=== PATIENT | female | born 1930 | race Caucasian/White ===

== ENCOUNTER 2016-07-13 17:34 | Inpatient (IN) ==
[2016-07-13] MEDS ORDERED: Ondansetron 4 MG/2 ML VIAL IV ONE ×2 (17:37→19:18)
[2016-07-13] MEDS ORDERED: *HR* Morphine 2 MG/ML SYRINGE IV ONE (17:37)
[2016-07-13] MEDS ORDERED: 0.9 % Sodium Chloride 1,000 ML IVC ONE (17:37)
--- NOTE | 2016-07-13 17:39 | Emergency Department Note ---
Disposition Clinical Impression: Nausea, Diarrhea, Dehydration Disposition: Still a Patient Condition: Fair Referrals: NO,PCP [Non-Partnered Physician] - Forms: Work/School Release, ED Satisfaction Letter General Adult HPI - General Chief complaint: ED Abdominal Pain Stated complaint: Abdominal Pain Time Seen by Provider: 07/13/16 17:37 - Related Data Home Medications Medication Instructions Recorded Confirmed Levothyroxine [Synthroid] 25 mcg PO DAILY 02/12/15 05/16/16 Losartan [Cozaar] 25 mg PO DAILY 02/14/15 05/16/16 Escitalopram [Lexapro] 10 mg PO DAILY 02/19/15 05/16/16 Furosemide [Lasix] 40 mg PO DAILY 02/25/16 05/16/16 Lansoprazole [Prevacid] 30 mg PO DAILY 05/16/16 05/16/16 Megestrol Acetate [Megace] 40 mg PO DAILY 05/16/16 05/16/16 Ondansetron HCl [Zofran] 4 - 8 mg PO Q6-8H PRN 05/16/16 05/16/16 Primidone [Mysoline] 50 mg PO HS 05/16/16 05/16/16 Previous Rx's Medication Instructions Recorded Lactose-Reduced Food [Ensure High 1 bottle PO TID #90 can 02/27/16 Protein] Ciprofloxacin HCl [Cipro] 250 mg PO BID #16 tab 05/18/16 Ondansetron ODT [Zofran ODT] 4 mg SL Q6HR PRN #12 tab.rapdis 05/18/16 Megestrol Acetate [Megace] 10 ml PO BID #400 mls 07/07/16 MetroNIDAZOLE [Flagyl] 500 mg PO TID #30 tablet 07/07/16 Nitrofurantoin (BID) [Macrobid] 100 mg PO BID #20 capsule 07/07/16 Allergies Allergy/AdvReac Type Severity Reaction Status Date / Time No Known Allergies Allergy Verified 07/13/16 17:46 Past Medical History - Past Medical History Medical history: Reports: arthritis, cancer, diabetes, hyperlipidemia, hypertension, renal disease, thyroid disease, TIA Surgical history: Reports: cholecystectomy, colectomy, colostomy Psychiatric history: Reports: anxiety, depression 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 history: Reports: no BICYCLE REPAIRER history - Social History Smoking Status: Never smoker Smokeless Tobacco Status: No Alcohol use: Reports: none Drug use: Reports: none Course Vital Signs Temperature 97.6 F 07/13/16 17:36 Pulse Rate 88 07/13/16 17:36 Respiratory Rate 20 07/13/16 17:36 Blood Pressure 117/65 07/13/16 17:36 O2 Sat by Pulse Oximetry 99 07/13/16 17:36 Temperature 97.6 F 07/13/16 17:36 Pulse Rate 85 07/13/16 17:47 Respiratory Rate 20 07/13/16 17:47 Blood Pressure 117/65 07/13/16 17:36 O2 Sat by Pulse Oximetry 97 07/13/16 17:47 Oxygen Delivery Oxygen Delivery Room Air Medical Decision Making - Lab Data Result diagrams: 07/13/16 17:57 Lab Results 07/13/16 07/13/16 Range/Units 17:57 18:07 WBC 12.8 H (4.3-11.1) K/mcL RBC 4.83 (3.82-4.97) M/mcL Hgb 15.2 (11.5-15.4) g/dL Hct 43.8 (35.3-44.9) % MCV 90.7 (83.0-100.0) fL MCH 31.5 (28.0-33.3) pg MCHC 34.7 (31.6-35.5) g/dL RDW 13.8 (11.5-14.5) % Plt Count 288 (140-400) K/mcL MPV 9.8 (9.4-12.4) fL Immature Gran % 0.5 (0-4) % Seg Neutrophils % 72.3 % Lymphocytes % 21.5 % Monocytes % 5.3 % Eosinophils % 0.2 % Basophils % 0.2 % Neutrophils # 9.3 H (1.6-8.9) K/mcL Lymphocytes # 2.8 (0.6-4.6) K/mcL Monocytes # 0.7 (0.0-1.3) K/mcL Eosinophils # 0.0 (0.0-0.6) K/mcL Basophils # 0.0 (0.0-0.2) K/mcL Specimen Rejected Hemolyzed Attestation Statement - Attestation Attestation: I examined this patient and my medical decision-making was reviewed with the DIP GUIDER STOVES/PA/Advanced Practice Nurse/Resident Physician. I agree with the documented findings, disposition and treatment plan as described except to the extent set forth below. [id number] time provided Patient presents from home via EMS with reports of nausea, vomiting, loose stool into her ostomy appliance. She appears dehydrated on exam. She appears older than stated age. She is in the left side-lying position. 18:40: Care to be endorsed to the oncoming physician Dr. Willams at 7 PM pending labs and reevaluation. He will provide final disposition
--- NOTE | 2016-07-13 17:51 | Emergency Department Note ---
Disposition Clinical Impression: Nausea, Dehydration Diarrhea Qualifiers: Diarrhea type: unspecified type Qualified Code(s): R19.7 - Diarrhea, unspecified Disposition: Still a Patient Condition: Fair Referrals: NO,PCP [Non-Partnered Physician] - Forms: ED Satisfaction Letter, Work/School Release Time of Disposition: 18:45 Nausea/Vomiting/Diarrhea HPI - General Chief complaint: ED Abdominal Pain Stated complaint: Abdominal Pain Time Seen by Provider: 07/13/16 17:37 Source: EMS Mode of arrival: ambulatory Limitations: no limitations Nursing Notes Reviewed: Yes Vital Signs Reviewed: Yes - History of Present Illness HPI Narrative: Patient is an 85-year-old female with past medical history of hypertension, depression, bowel surgery with colostomy, diabetes, high cholesterol, TIA, CKD. She presents today via EMS due to nausea, significant diarrhea output from ostomy site, generalized weakness. EMS states that the patient has from home, lives with her . Blood pressure was 120/88, patient was tachycardic, afebrile. On presentation, patient denied any chest pain, shortness of breath, blood in stool, burning with urination, blood in urine. She did admit to some mild generalized abdominal pain. - Related Data Home Medications Medication Instructions Recorded Confirmed Levothyroxine [Synthroid] 25 mcg PO DAILY 02/12/15 05/16/16 Losartan [Cozaar] 25 mg PO DAILY 02/14/15 05/16/16 Escitalopram [Lexapro] 10 mg PO DAILY 02/19/15 05/16/16 Furosemide [Lasix] 40 mg PO DAILY 02/25/16 05/16/16 Lansoprazole [Prevacid] 30 mg PO DAILY 05/16/16 05/16/16 Megestrol Acetate [Megace] 40 mg PO DAILY 05/16/16 05/16/16 Ondansetron HCl [Zofran] 4 - 8 mg PO Q6-8H PRN 05/16/16 05/16/16 Primidone [Mysoline] 50 mg PO HS 05/16/16 05/16/16 Previous Rx's Medication Instructions Recorded Lactose-Reduced Food [Ensure High 1 bottle PO TID #90 can 02/27/16 Protein] Ciprofloxacin HCl [Cipro] 250 mg PO BID #16 tab 05/18/16 Ondansetron ODT [Zofran ODT] 4 mg SL Q6HR PRN #12 tab.rapdis 05/18/16 Megestrol Acetate [Megace] 10 ml PO BID #400 mls 07/07/16 MetroNIDAZOLE [Flagyl] 500 mg PO TID #30 tablet 07/07/16 Nitrofurantoin (BID) [Macrobid] 100 mg PO BID #20 capsule 07/07/16 Allergies Allergy/AdvReac Type Severity Reaction Status Date / Time No Known Allergies Allergy Verified 07/13/16 17:46 Constitutional: Denies: fever Cardiovascular: Denies: chest pain, palpitations, dyspnea on exertion Respiratory: Denies: cough, dyspnea, wheezes Gastrointestinal: Reports: abdominal pain, nausea, diarrhea. Denies: vomiting Genitourinary: Denies: urgency, dysuria, frequency, hematuria Musculoskeletal: Denies: back pain Integumentary: Denies: rash Neurological: Reports: weakness (Generalized). Denies: headache, numbness, paresthesias Past Medical History - Past Medical History Attestation: Yes The following information was validated with the patient. 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: Reports: no CIGAR PACKING EXAMINER history - Social History Smoking Status: Never smoker Smokeless Tobacco Status: No Alcohol use: Reports: none Drug use: Reports: none Physical Exam - General Limitations: no limitations General appearance: alert, cachectic - Head Head exam: atraumatic, normocephalic, normal inspection - Eye Eye exam: Present: EOMI, other (Right pupil chronically larger than left, reactive to light.) - ENT ENT exam: mucous membranes dry - Neck Neck exam: Present: normal inspection, full ROM, trachea midline - Chest Chest inspection: Present: normal inspection, symmetric chest wall rise - Respiratory Respiratory exam: Present: normal lung sounds bilaterally. Absent: respiratory distress, wheezes, stridor, accessory muscle use - Cardiovascular Cardiovascular exam: Present: regular rate, normal rhythm, normal heart sounds - Abdominal Exam Abdominal exam: Present: soft, tenderness (Mild generalized tenderness), other ( Colostomy bag is full of liquid stool, no local erythema, edema, or pus drainage around two ostomy sites. ). Absent: distention, guarding, rebound, rigidity - Extremities Exam Extremities exam: Present: normal inspection, full ROM. Absent: tenderness, pedal edema - Neurological Exam Neurological exam: Present: alert, oriented X3 - Psychiatric Psychiatric exam: Present: normal affect, normal mood - Skin Skin exam: Present: warm, dry, intact, normal color Course Course Narrative: Vitals were within normal limits on my exam. Physical exam shows: Cachectic female with dry mucous membranes, generalized abdominal pain, Colostomy bag is full of liquid stool, no local erythema, edema, or pus drainage around ostomy site. We will give the patient fluids 1 L normal saline, antibiotics, morphine for pain control. We will also obtain basic abdominal labs, urinalysis. Signed out to Dr. Martin and Dr. Willams for further care. Vital Signs Temperature 97.6 F 07/13/16 17:36 Pulse Rate 88 07/13/16 17:36 Respiratory Rate 20 07/13/16 17:36 Blood Pressure 117/65 07/13/16 17:36 O2 Sat by Pulse Oximetry 99 07/13/16 17:36 Temperature 97.6 F 07/13/16 17:36 Pulse Rate 85 07/13/16 17:47 Respiratory Rate 20 07/13/16 17:47 Blood Pressure 117/65 07/13/16 17:36 O2 Sat by Pulse Oximetry 97 07/13/16 17:47 Oxygen Delivery Oxygen Delivery Room Air Nausea/Vomiting/Diarrhea - [facility] Narrative Medical decision making narrative: Vitals were within normal limits on my exam. Physical exam shows: Cachectic female with dry mucous membranes, generalized abdominal pain, Colostomy bag is full of liquid stool, no local erythema, edema, or pus drainage around ostomy site. We will give the patient fluids 1 L normal saline, antibiotics, morphine for pain control. We will also obtain basic abdominal labs, urinalysis. Signed out to Dr. Martin and Dr. Willams for further care. - Medical Records Medical records reviewed: Yes I reviewed the patient's medical records. - Lab Data Lab results reviewed: Yes I reviewed the patient's lab results. Result diagrams: 07/13/16 17:57 Lab Results 07/13/16 07/13/16 Range/Units 17:57 18:07 WBC 12.8 H (4.3-11.1) K/mcL RBC 4.83 (3.82-4.97) M/mcL Hgb 15.2 (11.5-15.4) g/dL Hct 43.8 (35.3-44.9) % MCV 90.7 (83.0-100.0) fL MCH 31.5 (28.0-33.3) pg MCHC 34.7 (31.6-35.5) g/dL RDW 13.8 (11.5-14.5) % Plt Count 288 (140-400) K/mcL MPV 9.8 (9.4-12.4) fL Immature Gran % 0.5 (0-4) % Seg Neutrophils % 72.3 % Lymphocytes % 21.5 % Monocytes % 5.3 % Eosinophils % 0.2 % Basophils % 0.2 % Neutrophils # 9.3 H (1.6-8.9) K/mcL Lymphocytes # 2.8 (0.6-4.6) K/mcL Monocytes # 0.7 (0.0-1.3) K/mcL Eosinophils # 0.0 (0.0-0.6) K/mcL Basophils # 0.0 (0.0-0.2) K/mcL Specimen Rejected Hemolyzed - EKG Data EKG attestation: Yes I reviewed and interpreted this EKG. EKG results narrative: 07/13/16 at 18:02. Normal sinus rhythm. Rate 91. QTC 397. QRS 83. No acute ST elevation or depression. No acute changes from 05/16/16 S.B.A.R. - S.B.A.R. Situation: Demographics, MOA Background: Presenting Complaint, Relevant PMH, Meds, & Allergies Assessment: Vital Signs, Course and respsone to treatment, Exam Concerns, Patient/Family Expectation, Pertinant Lab Results, Outstanding Labs Recommendation: Barrier(s) to disposition, Recommendation based on pending studies, treatments, or consults S.B.A.R. Report Given to: Tabatha S.B.AMary AnneRMary Anne Repor Time: 18:45
[2016-07-13 18:04] LABS: Basophils % 0.2 %; Eosinophils % 0.2 %; Hematocrit 43.8 % (35.3-44.9); Hemoglobin 15.2 g/dL (11.5-15.4); Immature Granulocytes % 0.5 % (0-4); Lymphocytes # 2.8 K/mcL (0.6-4.6); Lymphocytes % 21.5 %; Mean Corpuscular HGB Conc 34.7 g/dL (31.6-35.5); Mean Corpuscular Hemoglobin 31.5 pg (28.0-33.3); Mean Corpuscular Volume 90.7 fL (83.0-100.0); Mean Platelet Volume 9.8 fL (9.4-12.4); Monocytes # 0.7 K/mcL (0.0-1.3); Monocytes % 5.3 %; Neutrophils # 9.3 K/mcL (1.6-8.9); Platelet Count 288 K/mcL (140-400); Red Blood Count 4.83 M/mcL (3.82-4.97); Red Cell Distribution Width 13.8 % (11.5-14.5); Segmented Neutrophils % 72.3 %
[2016-07-13 18:42] LABS: Bilirubin,Urine Negative (Negative); Blood,Urine Negative (Negative); Clarity,Urine Cloudy (Clear); Color,Urine Yellow (Yellow); Glucose,Urine (UA) Normal (Normal); Ketones,Urine Negative (Negative); Leukocyte Esterase,Urine Moderate (Negative); Nitrite,Urine Negative (Negative); Protein,Urine Negative (Neg-Trace); Specific Gravity,Urine 1.015 (1.010-1.025); Urobilinogen,Urine Normal (Normal)
[2016-07-13 18:44] LABS: Bacteria,Urine None Seen per hpf (None-Few); Hyaline Casts,Urine None Seen per lpf (None-Few); RBC,Urine 0-3 per hpf (0-3); Squamous Epithelial Cell,Urine Many per lpf (None-Few); WBC,Urine 15-30 per hpf (0-3)
[2016-07-13 18:52] LABS: Albumin 4.4 g/dL (3.5-5.0); Albumin/Globulin Ratio 1.3 (1.1-2.2); Bilirubin,Total 0.7 mg/dL (0.2-1.2); Calcium 10.1 mg/dL (8.6-10.8); Globulin 3.3 g/dL (2.4-3.5); Potassium 4.3 mEq/L (3.5-4.5); Total Protein 7.7 g/dL (6.0-8.3)
--- NOTE | 2016-07-13 20:22 | Emergency Department Note ---
Disposition Clinical Impression: Nausea, Dehydration, Hyponatremia Diarrhea Qualifiers: Diarrhea type: unspecified type Qualified Code(s): R19.7 - Diarrhea, unspecified Disposition: Admitted As Inpatient Condition: Fair Time of Disposition: 20:42 Abdominal Pain HPI - General Chief Complaint: ED Abdominal Pain Stated Complaint: Abdominal Pain Time Seen by Provider: 07/13/16 17:37 Source: EMS Mode of arrival: ambulatory Nursing Notes Reviewed: Yes Vital Signs Reviewed: Yes - History of Present Illness HPI Narrative: Patient presents emergency room by EMS for evaluation of dehydration feeling ill. Denies fevers chills chest pain shortness of breath headache or vision change. Main complaint on presentation his abdominal discomfort and generalized malaise. She has not wanted to eat or drink anything over the last several days to weeks she does have a history of colon cancer which she was treated with a diverting colectomy. Pt Subjective Complaint: abdominal pain Onset (ago): week(s) (2 weeks) Consistency: constant Pain Severity: none Pain Scale: 0 Quality: cramping, aching Radiation: none Migration to: no migration Improves with: nothing Worsens with: eating, movement Associated symptoms: Reports: chills - Related Data Home Medications Medication Instructions Recorded Confirmed Levothyroxine [Synthroid] 25 mcg PO DAILY 02/12/15 05/16/16 Losartan [Cozaar] 25 mg PO DAILY 02/14/15 05/16/16 Escitalopram [Lexapro] 10 mg PO DAILY 02/19/15 05/16/16 Furosemide [Lasix] 40 mg PO DAILY 02/25/16 05/16/16 Lansoprazole [Prevacid] 30 mg PO DAILY 05/16/16 05/16/16 Megestrol Acetate [Megace] 40 mg PO DAILY 05/16/16 05/16/16 Ondansetron HCl [Zofran] 4 - 8 mg PO Q6-8H PRN 05/16/16 05/16/16 Primidone [Mysoline] 50 mg PO HS 05/16/16 05/16/16 Previous Rx's Medication Instructions Recorded Lactose-Reduced Food [Ensure High 1 bottle PO TID #90 can 02/27/16 Protein] Ciprofloxacin HCl [Cipro] 250 mg PO BID #16 tab 05/18/16 Ondansetron ODT [Zofran ODT] 4 mg SL Q6HR PRN #12 tab.rapdis 05/18/16 Megestrol Acetate [Megace] 10 ml PO BID #400 mls 07/07/16 MetroNIDAZOLE [Flagyl] 500 mg PO TID #30 tablet 07/07/16 Nitrofurantoin (BID) [Macrobid] 100 mg PO BID #20 capsule 07/07/16 Allergies Allergy/AdvReac Type Severity Reaction Status Date / Time No Known Allergies Allergy Verified 07/13/16 17:46 All systems ED: reviewed and negative except as stated. Constitutional: Denies: fever Cardiovascular: Denies: chest pain, palpitations, dyspnea on exertion Respiratory: Denies: cough, dyspnea, wheezes Gastrointestinal: Reports: abdominal pain, nausea, diarrhea. Denies: vomiting Genitourinary: Denies: urgency, dysuria, frequency, hematuria Musculoskeletal: Denies: back pain Integumentary: Denies: rash Neurological: Reports: weakness (Generalized). Denies: headache, numbness, paresthesias Abdominal Pain PMH - Past Medical History Medical history: Reports: arthritis, cancer, diabetes, hyperlipidemia, hypertension, renal disease, thyroid disease, TIA Female Surgical History: Reports: colostomy HISTOLOGY TECHNOLOGIST history: Reports: no HISTOLOGY TECHNOLOGIST history Psychiatric history: Reports: anxiety, depression - Social History Smoking status: Never smoker Alcohol use: Reports: none Drug use: Reports: none Physical Exam - General Limitations: no limitations General appearance: alert, cachectic - Chest Chest inspection: Present: normal inspection, symmetric chest wall rise - Respiratory Respiratory exam: Present: normal lung sounds bilaterally. Absent: respiratory distress, wheezes - Cardiovascular Cardiovascular exam: Present: regular rate, normal rhythm, normal heart sounds - Abdominal Exam Abdominal exam: Present: soft, Non-Tender, normal bowel sounds, other (Patient has a well-healed ostomy site. No signs of discharge redness or swelling no palpable abscess formation. She has a healing either ostomy site of previous G- tube placement.). Absent: tenderness, distention, guarding, rebound, rigidity, Miller's sign, Rovsing's sign, tenderness at McBurney's Point Course Course Narrative: Patient seen and examined the time of arrival. Patient was signed out at the start of my shift. 85-year-old female presenting with failure to thrive weakness and dehydration. Patient is accompanied here to home. is not the bedside currently. He is on his way in. Otherwise vital signs been reviewed and are stable. Patient is very cachectic and frail on my evaluation. Lungs are clear heart is regular. Abdomen is soft she does have previously healing either ostomy G-tube site. No abscess formation. Skin is not showing any signs of cellulitis or infection. Ostomy site appears to be appropriate. Good output legs and extremities are very thin frail patient has weakness at home. Vital signs reviewed and are stable. Lab workup to be completed. Imaging Ativan at this time to evaluate for lung related issue. Fluids and nausea medication to continue. Discussion will be had with the when he gets here for possible placement medical management - Reevaluation(s) Reevaluation #1: Patient is influenza negative. She does have an elevated creatinine showing signs of dehydration along with a gapped acidosis. She has hypochloremic hyponatremic metabolic acidosis. Patient will be advised to consider admission at this time. will be informed of our plan. Hospital this time for admission for hyponatremia hypochloremic metabolic acidosis with dehydration Time: 20:41 Reevaluation #2: Patient was discussed with the hospitalist Dr. soto. We reviewed the patient's presentation symptoms medical history in great detail. All recommendations he had a treatment course was that on blood cultures and divided provide the patient with a one-time dose of Rocephin here in the emergency room to treat his concern for a possible urinary tract infection. Patient is stable informed of our plan. Admission process to be completed this time. We will continue to monitor her symptoms and medical care in the emergency room and so she was transferred up to the floor. Time: 21:03 Vital Signs Temperature 97.6 F 07/13/16 17:36 Pulse Rate 88 07/13/16 17:36 Respiratory Rate 20 07/13/16 17:36 Blood Pressure 117/65 07/13/16 17:36 O2 Sat by Pulse Oximetry 99 07/13/16 17:36 Temperature 98.1 F 07/13/16 23:05 Pulse Rate 78 07/13/16 23:05 Respiratory Rate 18 07/13/16 23:05 Blood Pressure 128/64 07/13/16 23:05 O2 Sat by Pulse Oximetry 97 07/13/16 23:05 Oxygen Delivery Oxygen Delivery Room Air Abdominal Pain - MDM Narrative Medical decision making narrative: Dehydration, failure to thrive, decompensation, muscle wasting - Medical Records Medical records reviewed: Yes I reviewed the patient's medical records. - Lab Data Lab results reviewed: Yes I reviewed the patient's lab results. Result diagrams: 07/13/16 17:57 07/13/16 18:26 Lab Results 07/13/16 07/13/16 07/13/16 Range/Units 17:57 18:07 18:26 WBC 12.8 H (4.3-11.1) K/mcL RBC 4.83 (3.82-4.97) M/mcL Hgb 15.2 (11.5-15.4) g/dL Hct 43.8 (35.3-44.9) % MCV 90.7 (83.0-100.0) fL MCH 31.5 (28.0-33.3) pg MCHC 34.7 (31.6-35.5) g/dL RDW 13.8 (11.5-14.5) % Plt Count 288 (140-400) K/mcL MPV 9.8 (9.4-12.4) fL Immature Gran % 0.5 (0-4) % Seg Neutrophils % 72.3 % Lymphocytes % 21.5 % Monocytes % 5.3 % Eosinophils % 0.2 % Basophils % 0.2 % Neutrophils # 9.3 H (1.6-8.9) K/mcL Lymphocytes # 2.8 (0.6-4.6) K/mcL Monocytes # 0.7 (0.0-1.3) K/mcL Eosinophils # 0.0 (0.0-0.6) K/mcL Basophils # 0.0 (0.0-0.2) K/mcL Sodium 121 L (136-145) mEq/L Potassium 4.3 (3.5-4.5) mEq/L Chloride 84 L (98-109) mEq/L Carbon Dioxide 19 (19-29) mEq/L BUN 90 H (7-20) mg/dL Creatinine 2.02 H (0.57-1.11) mg/dL Est GFR ( Amer) 28 L (> 60) Est GFR (Non-Af Amer) 23 L (> 60) BUN/Creatinine Ratio 45 H (6-26) Glucose 104 H (70-99) mg/dL Calculated Osmolality 280 (280-300) Lactic Acid (0.5-2.2) mmol/L Calcium 10.1 (8.6-10.8) mg/dL Total Bilirubin 0.7 (0.2-1.2) mg/dL AST 27 (5-34) Units/L ALT 14 (0-55) Units/L Alkaline Phosphatase 75 (38-126) Units/L Serum Total Protein 7.7 (6.0-8.3) g/dL Albumin 4.4 (3.5-5.0) g/dL Globulin 3.3 (2.4-3.5) g/dL Albumin/Globulin Ratio 1.3 (1.1-2.2) Lipase 152 H (8-78) Units/L Urine Color (Yellow) Urine Clarity (Clear) Urine pH (5.0-8.0) pH Units Ur Specific [place] (1.010-1.025) Urine Protein (Neg-Trace) mg/dL Urine Glucose (UA) (Normal) mg/dL Urine Ketones (Negative) mg/dL Urine Blood (Negative) Urine Nitrite (Negative) Urine Bilirubin (Negative) Urine Urobilinogen (Normal) mg/dL Ur Leukocyte Esterase (Negative) Urine Microscopic RBC (0-3) per hpf Urine Microscopic WBC (0-3) per hpf Ur Squamous Epith Cells (None-Few) per lpf Urine Bacteria (None-Few) per hpf Hyaline Casts (None-Few) per lpf Specimen Rejected Hemolyzed 07/13/16 07/13/16 Range/Units 18:26 18:33 WBC (4.3-11.1) K/mcL RBC (3.82-4.97) M/mcL Hgb (11.5-15.4) g/dL Hct (35.3-44.9) % MCV (83.0-100.0) fL MCH (28.0-33.3) pg MCHC (31.6-35.5) g/dL RDW (11.5-14.5) % Plt Count (140-400) K/mcL MPV (9.4-12.4) fL Immature Gran % (0-4) % Seg Neutrophils % % Lymphocytes % % Monocytes % % Eosinophils % % Basophils % % Neutrophils # (1.6-8.9) K/mcL Lymphocytes # (0.6-4.6) K/mcL Monocytes # (0.0-1.3) K/mcL Eosinophils # (0.0-0.6) K/mcL Basophils # (0.0-0.2) K/mcL Sodium (136-145) mEq/L Potassium (3.5-4.5) mEq/L Chloride (98-109) mEq/L Carbon Dioxide (19-29) mEq/L BUN (7-20) mg/dL Creatinine (0.57-1.11) mg/dL Est GFR ( Amer) (> 60) Est GFR (Non-Af Amer) (> 60) BUN/Creatinine Ratio (6-26) Glucose (70-99) mg/dL Calculated Osmolality (280-300) Lactic Acid 1.7 (0.5-2.2) mmol/L Calcium (8.6-10.8) mg/dL Total Bilirubin (0.2-1.2) mg/dL AST (5-34) Units/L ALT (0-55) Units/L Alkaline Phosphatase (38-126) Units/L Serum Total Protein (6.0-8.3) g/dL Albumin (3.5-5.0) g/dL Globulin (2.4-3.5) g/dL Albumin/Globulin Ratio (1.1-2.2) Lipase (8-78) Units/L Urine Color Yellow (Yellow) Urine Clarity Cloudy A (Clear) Urine pH 5.0 (5.0-8.0) pH Units Ur Specific [place] 1.015 (1.010-1.025) Urine Protein Negative (Neg-Trace) mg/dL Urine Glucose (UA) Normal (Normal) mg/dL Urine Ketones Negative (Negative) mg/dL Urine Blood Negative (Negative) Urine Nitrite Negative (Negative) Urine Bilirubin Negative (Negative) Urine Urobilinogen Normal (Normal) mg/dL Ur Leukocyte Esterase Moderate H (Negative) Urine Microscopic RBC 0-3 (0-3) per hpf Urine Microscopic WBC 15-30 H (0-3) per hpf Ur Squamous Epith Cells Many H (None-Few) per lpf Urine Bacteria None Seen (None-Few) per hpf Hyaline Casts None Seen (None-Few) per lpf Specimen Rejected - Radiology Data Radiology results reviewed: Yes I reviewed the patient's radiology results. Chest x-ray shows no acute pathology on exam. Attestation Statement - Attestation Attestation: For this encounter, I have reviewed the resident, WOODWORK SALVAGE INSPECTOR, or PA documentation, treatment plan, and medical decision making; and I have had face to face time with this patient. 85-year-old female presents to the emergency department with concerns of nausea , vomiting, diarrhea and associated weakness, fatigue. Patient is unable to provide an adequate history regarding her symptoms. This patient was received in sign out at the start of my shift, pending labs and disposition. On reevaluation the patient is fatigued and weak, unable to give a history. She has an anion gap of 18 with hyponatremia and hypochloremia. Patient has mild elevation of her creatinine compared to previous. The patient was admitted to the hospitalist for further care and evaluation. Hospitaist recommended starting antibiotics for possible urinary tract infection.
[2016-07-13] MEDS ORDERED: Levofloxacin 750 MG/150 ML 750 MG/150 ML BAG IVPB SCH (23:45)
--- NOTE | 2016-07-13 23:48 | Internal Med History&Physical ---
Date of Encounter: 07/13/16 Time of Encounter: 23:44 Assessment and Plan (1) Hyponatremia Current visit: Yes Status: Acute Hypovolemic hyponatremia. Sodium 121. patient had received 1 L of normal saline in the ER. Will recheck sodium Q4 hours I will hold off fluid resuscitation until repeat sodium check is done now. Plan to correct the sodium no faster than .5 mEq per hour or 10 mEq per day (2) Acute renal failure Current visit: No Status: Acute Hydration. Monitor urine output. jimenez catheter will be placed Qualifiers: Qualified Code(s): N17.9 - Acute kidney failure, unspecified (3) DVT prophylaxis Current visit: No Status: Acute Heparin subcutaneous (4) UTI (urinary tract infection) Current visit: No Status: Acute Ceftriaxone 1 g daily she had most infections before with gram-negative organisms susceptible to ceftriaxone. One time she had enterococcus however patient described hemodynamically stable. If She becomes unstable broaden coverage to cultures are back Qualifiers: Qualified Code(s): N39.0 - Urinary tract infection, site not specified (5) Nausea Current visit: Yes Status: Acute Abdominal exam is benign. May be related to unit tract infection. Symptomatic treatment. Ice chips for now her lipase is 150. Does not Meet criteria for acute pancreatitis. Internal Medicine - H&P: HPI Chief complaint: weakness History of present illness: Ms. Guerrero is a 85 year old female with multiple medical problems presents an emergency room today with weakness. For the past day or so she has been noticing nausea is not been eating or drinking well. She has been getting progressively weak. Woke up in the emergency room showed evidence of dehydration renal failure and during tract infection. Patient has multiple urinary tract infections before. Patient denies any cough expectoration fevers or chills. Patient denies any increase output from colostomy. Patient denies any abdominal pain or chest pain Past Med Surg Social Fam HX - Past Medical History Medical history: arthritis, cancer, diabetes, hyperlipidemia, hypertension, renal disease, thyroid disease, TIA Psychiatric history: anxiety, depression - Past Surgical History Surgical History: cholecystectomy, colectomy, colostomy - Social History Smoking Status: Never smoker Smokeless Tobacco Status: No Alcohol use: none Drug use: none - Family History Mother Adopted: No Hx Family Cardiac Disorders: Yes Hx Family Respiratory Disorders: No Father Hx Family Respiratory Disorders: Yes (TB) Internal Medicine - H&P: Meds Levothyroxine [Synthroid] 25 mcg PO DAILY 02/12/15 [History] Losartan [Cozaar] 25 mg PO DAILY 02/14/15 [History] Escitalopram [Lexapro] 10 mg PO DAILY 02/19/15 [History] Furosemide [Lasix] 40 mg PO DAILY 02/25/16 [History] Lactose-Reduced Food [Ensure High Protein] 1 bottle PO TID #90 can 02/27/16 [Rx] Lansoprazole [Prevacid] 30 mg PO DAILY 05/16/16 [History] Megestrol Acetate [Megace] 40 mg PO DAILY 05/16/16 [History] Ondansetron HCl [Zofran] 4 - 8 mg PO Q6-8H PRN 05/16/16 [History] Primidone [Mysoline] 50 mg PO HS 05/16/16 [History] Ciprofloxacin HCl [Cipro] 250 mg PO BID #16 tab 05/18/16 [Rx] Ondansetron ODT [Zofran ODT] 4 mg SL Q6HR PRN #12 tab.rapdis 05/18/16 [Rx] Megestrol Acetate [Megace] 10 ml PO BID #400 mls 07/07/16 [Rx] MetroNIDAZOLE [Flagyl] 500 mg PO TID #30 tablet 07/07/16 [Rx] Nitrofurantoin (BID) [Macrobid] 100 mg PO BID #20 capsule 07/07/16 [Rx] Allergies No Known Allergies Allergy (Verified 07/13/16 17:46) All Systems PM: A 10-system review of systems was performed and is negative for pertinent findings except as documented above in the HPI. Review of systems: 10 point review of systems is negative except for HPI - Constitutional Vitals: Temp Pulse Resp BP Pulse Ox 98.1 F 78 18 128/64 97 07/13/16 23:05 07/13/16 23:05 07/13/16 23:05 07/13/16 23:05 07/13/16 23:05 Exam: Gen.: patient is alert oriented not in distress. Cardiac: Normal S1 S2 no additional sounds or murmurs chest: clear to auscultation abdomen soft nontender nondistended normal bowel sounds. Colostomy bag in place lower extremity: lax calf muscles neuro no focal deficit Internal Med - H&P Results - Labs CBC & Chem 7: 07/13/16 17:57 07/13/16 18:26
[2016-07-14 04:51] LABS: Basophils % 0.2 %; Eosinophils # 0.1 K/mcL (0.0-0.6); Eosinophils % 0.7 %; Hematocrit 39.3 % (35.3-44.9); Immature Granulocytes % 0.7 % (0-4); Lymphocytes % 22.1 %; Mean Corpuscular HGB Conc 33.8 g/dL (31.6-35.5); Mean Corpuscular Hemoglobin 31.1 pg (28.0-33.3); Mean Corpuscular Volume 91.8 fL (83.0-100.0); Mean Platelet Volume 9.7 fL (9.4-12.4); Monocytes # 0.8 K/mcL (0.0-1.3); Monocytes % 5.9 %; Neutrophils # 9.4 K/mcL (1.6-8.9); Platelet Count 242 K/mcL (140-400); Red Blood Count 4.28 M/mcL (3.82-4.97); Red Cell Distribution Width 13.9 % (11.5-14.5); Segmented Neutrophils % 70.4 %
[2016-07-14 04:57] LABS: Hemoglobin 13.3 g/dL (11.5-15.4)
[2016-07-14 05:03] LABS: Calcium 8.6 mg/dL (8.6-10.8); Magnesium 2.4 mg/dL (1.6-2.6); Potassium 3.6 mEq/L (3.5-4.5)
[2016-07-14] MEDS: *HR* Heparin 5,000 UNIT/ML VIAL SQ SCH ×2 (06:21→18:28)
[2016-07-14] MEDS: Levothyroxine 25 MCG TABLET PO SCH (06:22)
[2016-07-14] MEDS: 0.9 % Sodium Chloride 1,000 ML IVC SCH (10:30)
--- NOTE | 2016-07-14 11:13 | Internal Med Progress Note ---
Date of Encounter: 07/14/16 Time of Encounter: 11:12 - Assessment and plan (1) UTI (urinary tract infection) Current Visit: No Status: Acute Assessment and plan: UA suspicious for UTI F/U urine culture Qualifiers: Urinary tract infection type: acute cystitis Hematuria presence: with hematuria Qualified Code(s): N30.01 - Acute cystitis with hematuria (2) Pneumonia Current Visit: Yes Status: Acute Assessment and plan: Due to imaging findings and generalized labile status will empirically treat for PNA at this time follow up Legionella Ag f/u blood cultures Started Levaquin IV Qualifiers: Pneumonia type: due to unspecified organism Laterality: unspecified laterality Lung location: unspecified part of lung Qualified Code(s): J18.9 - Pneumonia, unspecified organism (3) Hyponatremia Current Visit: Yes Status: Acute Assessment and plan: Hypovolemic hyponatremia Continue IV fluids Plan to correct Na no faster than 0.5meq/hour to 10 meq/day (4) Acute renal insufficiency Current Visit: No Status: Acute Assessment and plan: likely secondary to dehydration Kidney function improved from previous day continue iv fluids continue to monitor (5) Colon cancer Current Visit: No Status: Chronic Assessment and plan: hx of colon ca in remission s/p colostomy Qualifiers: Colon location: transverse Qualified Code(s): C18.4 - Malignant neoplasm of transverse colon (6) DVT prophylaxis Current Visit: No Status: Acute Assessment and plan: Heparin SQ - Subjective Interval history: Patient seen and examined with present at bedside. Patient reports of feeling sick but denies any chest pain, sob, abd pain, n/v, fever, or chills. As per records, patient noted to have multiple UTIs and recently had a CT abd/ pelvis which was negative for metastatic disease but showed pulmonary nodules consistent with infectious etiology. - Constitutional Vitals: Temp Pulse Resp BP Pulse Ox 97.9 F 71 16 107/67 97 07/14/16 07:51 07/14/16 07:51 07/14/16 07:51 07/14/16 07:51 07/14/16 07:51 General appearance: Present: A&O X 3 (frail ), no acute distress - Head Head exam: Present: atraumatic, normocephalic - Eye Eye exam: Present: normal appearance. Absent: conjuntiva pink, sclera anicteric - Respiratory Respiratory exam: Present: CTAB. Absent: respiratory distress, wheezes - Cardiovascular Cardiovascular exam: Present: RRR, +S1, +S2 - GI/Abdominal GI/Abdominal exam: Present: normal bowel sounds, soft. Absent: tenderness ( colostomy bag with feces) - Extremities Exam Extremities exam: Present: warm, radial pulses palpable and symetrical. Absent : calf tenderness, pedal edema Internal Medicine: Result - Labs CBC & Chem 7: 07/14/16 04:25 07/14/16 11:40 Labs: Short CBC 07/14/16 Range/Units 04:25 WBC 13.4 H (4.3-11.1) K/mcL Hgb 13.3 D (11.5-15.4) g/dL Hct 39.3 (35.3-44.9) % Plt Count 242 (140-400) K/mcL Neutrophils # 9.4 H (1.6-8.9) K/mcL BMP 07/14/16 07/14/16 07/14/16 00:09 04:25 04:25 Sodium 125 L 127 L 127 L Potassium 3.6 Chloride 95 L Carbon Dioxide 20 BUN 84 H Creatinine 1.37 H Glucose 84 Calcium 8.6 07/14/16 08:14 Sodium 128 L Potassium Chloride Carbon Dioxide BUN Creatinine Glucose Calcium - VTE Documentation of Mechanical Device: Intermittent pneumatic compression device Consult Discharge Plan - Plan Referrals: Yinka Jama MD [Primary Care Provider] -
[2016-07-14] MEDS ORDERED: Levofloxacin 750 MG/150 ML 750 MG/150 ML BAG IVPB SCH (12:00)
[2016-07-14] MEDS: Ondansetron 4 MG/2 ML VIAL IVP PRN (12:28)
--- NOTE | 2016-07-14 19:42 | Electrocardiograph Report ---
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
[2016-07-14] MEDS: Haloperidol Lactate 5 MG/ML VIAL IVP PRN (23:22)
[2016-07-15] MEDS: 0.9 % Sodium Chloride 1,000 ML IVC SCH (01:33)
[2016-07-15 04:41] LABS: Basophils % 0.3 %; Eosinophils # 0.1 K/mcL (0.0-0.6); Eosinophils % 0.8 %; Hematocrit 35.5 % (35.3-44.9); Hemoglobin 12.2 g/dL (11.5-15.4); Immature Granulocytes % 0.5 % (0-4); Lymphocytes # 2.4 K/mcL (0.6-4.6); Mean Corpuscular HGB Conc 34.4 g/dL (31.6-35.5); Mean Corpuscular Hemoglobin 31.3 pg (28.0-33.3); Mean Platelet Volume 9.4 fL (9.4-12.4); Monocytes # 0.9 K/mcL (0.0-1.3); Monocytes % 8.1 %; Neutrophils # 7.6 K/mcL (1.6-8.9); Platelet Count 197 K/mcL (140-400); Red Cell Distribution Width 13.8 % (11.5-14.5); Segmented Neutrophils % 68.3 %
[2016-07-15 05:15] LABS: BUN/Creatinine Ratio 42 (6-26); Calcium 8.6 mg/dL (8.6-10.8); Carbon Dioxide 20 mEq/L (19-29); Chloride 96 mEq/L (98-109); Glucose 91 mg/dL (70-99); Magnesium 1.9 mg/dL (1.6-2.6); Osmolality,Calculated 268 (280-300); Phosphorous 1.8 mg/dL (2.3-4.7); Potassium 3.7 mEq/L (3.5-4.5); Sodium 126 mEq/L (136-145); eGFR For African Americans > 60 (> 60); eGFR For Non-African Americans > 60 (> 60)
[2016-07-15 05:21] LABS: Blood Urea Nitrogen 32 mg/dL (7-20)
[2016-07-15] MEDS: Levothyroxine 25 MCG TABLET PO SCH (07:02)
[2016-07-15] MEDS: *HR* Heparin 5,000 UNIT/ML VIAL SQ SCH ×2 (07:05→18:48)
--- NOTE | 2016-07-15 08:03 | Internal Med Progress Note ---
Date of Encounter: 07/15/16 Time of Encounter: 08:00 - Assessment and plan (1) Confusion Current Visit: Yes Status: Chronic Assessment and plan: Patient has had previous admissions with similar complaints; case d/w patient services rep and patient and her unable to care for themselves at home; patient does have significant cognitive dysfunction and dementia, and likely at her baseline currently; mentation made worse by underlying infection, hyponatremia, dehydration and hospitalization; continue to monitor; fall precautions; plan for placement in SNF when medically stable; (2) Hyponatremia Current Visit: Yes Status: Acute Assessment and plan: likely related to dehydration and poor oral intake; stable around 126; repeat serum sodium every 8hours and monitor closely; continue IV hydration with NS; (3) Nausea Current Visit: Yes Status: Acute Assessment and plan: Although patient reports feeling sick, no actual evidence of nausea or emesis per RN discussions and notes; continue to monitor; (4) Pneumonia Current Visit: Yes Status: Acute Assessment and plan: CXR not suggestive of Pneumonia; continue IV Levaquin to complete 7-day course ( 07/08 today). Blood cultures remain negative; O2 requirements at baseline; Qualifiers: Pneumonia type: due to unspecified organism Laterality: unspecified laterality Lung location: unspecified part of lung Qualified Code(s): J18.9 - Pneumonia, unspecified organism (5) Acute renal failure Current Visit: Yes Status: Resolved Assessment and plan: improved with IV hydration; Qualifiers: Acute renal failure type: unspecified Qualified Code(s): N17.9 - Acute kidney failure, unspecified (6) UTI (urinary tract infection) Current Visit: Yes Status: Acute Assessment and plan: f/up urine culture and continue IV Levaquin; Qualifiers: Urinary tract infection type: site unspecified Hematuria presence: without hematuria Qualified Code(s): N39.0 - Urinary tract infection, site not specified (7) Colon cancer Current Visit: Yes Status: Chronic Qualifiers: Colon location: transverse Qualified Code(s): C18.4 - Malignant neoplasm of transverse colon (8) Diabetes Current Visit: Yes Status: Chronic Assessment and plan: Accucheck blood glucose monitoring with sliding scale insulin as needed; patient noted to have chronic poor appetite; advance to soft diabetic diet; Qualifiers: Diabetes mellitus type: type 2 Diabetes mellitus complication status: with unspecified complications Diabetes mellitus intermediate insulin use: without superintendent container terminal use Qualified Code(s): E11.8 - Type 2 diabetes mellitus with unspecified complications (9) Hyperlipidemia Current Visit: Yes Status: Chronic Qualifiers: Hyperlipidemia type: unspecified Qualified Code(s): E78.5 - Hyperlipidemia , unspecified (10) Hypertension Current Visit: Yes Status: Chronic Qualifiers: Hypertension type: essential hypertension Qualified Code(s): I10 - Essential (primary) hypertension (11) Hypothyroidism Current Visit: Yes Status: Chronic Qualifiers: Hypothyroidism type: unspecified Qualified Code(s): E03.9 - Hypothyroidism , unspecified - Subjective Interval history: Confused. Keeps repeating that she wants to get out of bed and needs to urinate , and that she is sick; no reported vomiting or diarrhea. No abdominal pain. Noted to have received a dose of Haldol overnight for agitation. - Constitutional Vitals: Temp Pulse Resp BP Pulse Ox 97.9 F 81 18 121/68 96 07/15/16 04:06 07/15/16 04:06 07/15/16 04:06 07/15/16 04:06 07/15/16 04:06 General appearance: Present: A&O X 1 - Respiratory Respiratory exam: Present: CTAB. Absent: accessory muscle use, rales, rhonchi, wheezes - Cardiovascular Cardiovascular exam: Present: RRR, +S1, +S2. Absent: diastolic murmur, gallop, rubs, systolic murmur - GI/Abdominal GI/Abdominal exam: Present: normal bowel sounds, soft, no peritoneal signs. Absent: distended, tenderness Internal Medicine: Result - Labs CBC & Chem 7: 07/15/16 04:30 07/15/16 12:20 Labs: Short CBC 07/15/16 Range/Units 04:30 WBC 11.1 (4.3-11.1) K/mcL Hgb 12.2 (11.5-15.4) g/dL Hct 35.5 (35.3-44.9) % Plt Count 197 (140-400) K/mcL Neutrophils # 7.6 (1.6-8.9) K/mcL BMP 07/14/16 07/14/16 07/15/16 08:14 11:40 04:30 Sodium 128 L 129 L 126 L Potassium 3.7 Chloride 96 L Carbon Dioxide 20 BUN 32 H D Creatinine 0.77 Glucose 91 Calcium 8.6 - VTE Documentation of Mechanical Device: Intermittent pneumatic compression device Consult Discharge Plan - Plan Referrals: Yinka Jama MD [Primary Care Provider] -
[2016-07-15] MEDS ORDERED: Sodium Phosphate 30 MMOL in D5% in Water 100 ML IVPB ONE (08:47)
[2016-07-15] MEDS: Haloperidol Lactate 5 MG/ML VIAL IVP PRN ×2 (12:55→22:20)
[2016-07-15] MEDS: Ondansetron 4 MG/2 ML VIAL IVP PRN (20:13)
[2016-07-16] MEDS ORDERED: Acetaminophen 325 MG TABLET PO PRN (01:44)
[2016-07-16] MEDS: 0.9 % Sodium Chloride 1,000 ML IVC SCH (05:24)
[2016-07-16] MEDS: Levothyroxine 25 MCG TABLET PO SCH (05:24)
[2016-07-16 06:16] LABS: BUN/Creatinine Ratio 21 (6-26); Calcium 8.4 mg/dL (8.6-10.8); Carbon Dioxide 21 mEq/L (19-29); Chloride 104 mEq/L (98-109); Glucose 79 mg/dL (70-99); Osmolality,Calculated 277 (280-300); Phosphorous 2.7 mg/dL (2.3-4.7); Potassium 3.2 mEq/L (3.5-4.5); Sodium 134 mEq/L (136-145); eGFR For African Americans > 60 (> 60); eGFR For Non-African Americans > 60 (> 60)
[2016-07-16 06:21] LABS: Blood Urea Nitrogen 14 mg/dL (7-20)
[2016-07-16] MEDS: *HR* Heparin 5,000 UNIT/ML VIAL SQ SCH ×2 (06:31→17:58)
[2016-07-16] MEDS: Ondansetron 4 MG/2 ML VIAL IVP PRN ×2 (08:30→16:21)
--- NOTE | 2016-07-16 09:01 | Internal Med Progress Note ---
Date of Encounter: 07/16/16 Time of Encounter: 08:59 - Assessment and plan (1) Confusion Current Visit: Yes Status: Chronic Assessment and plan: Acute on chronic encephalopathy, likely metabolic. Mental status improved. Currently likely at baseline mentation. Continue to monitor. Physical and occupational therapy evaluation and recommend placement in extended care facility with which the family is in agreement. coordinator of health services on board, working on the same. (2) Hyponatremia Current Visit: Yes Status: Acute Assessment and plan: likely related to dehydration and poor oral intake; improved to 134 today. Hold IV fluids and continue to monitor. Repeat serum sodium in 8 hours. (3) Nausea Current Visit: Yes Status: Acute Assessment and plan: Although patient reports feeling sick, no actual evidence of nausea or emesis per RN discussions and notes; continue to monitor; (4) Pneumonia Current Visit: Yes Status: Acute Assessment and plan: CXR not suggestive of Pneumonia; continue IV Levaquin to complete 7-day course ( 08/05 today). Blood cultures remain negative; O2 requirements at baseline; Qualifiers: Pneumonia type: due to unspecified organism Laterality: unspecified laterality Lung location: unspecified part of lung Qualified Code(s): J18.9 - Pneumonia, unspecified organism (5) Acute renal failure Current Visit: Yes Status: Resolved Qualifiers: Acute renal failure type: unspecified Qualified Code(s): N17.9 - Acute kidney failure, unspecified (6) UTI (urinary tract infection) Current Visit: Yes Status: Acute Assessment and plan: Final urine culture shows no significant bacterial growth. Continue IV antibiotics to complete a 7 day course. Qualifiers: Urinary tract infection type: site unspecified Hematuria presence: without hematuria Qualified Code(s): N39.0 - Urinary tract infection, site not specified (7) Colon cancer Current Visit: Yes Status: Chronic Qualifiers: Colon location: transverse Qualified Code(s): C18.4 - Malignant neoplasm of transverse colon (8) Diabetes Current Visit: Yes Status: Chronic Assessment and plan: Accucheck blood glucose monitoring with sliding scale insulin as needed; diabetic diet; Qualifiers: Diabetes mellitus type: type 2 Diabetes mellitus complication status: with unspecified complications Diabetes mellitus long lines operator insulin use: without long lines operator use Qualified Code(s): E11.8 - Type 2 diabetes mellitus with unspecified complications (9) Hyperlipidemia Current Visit: Yes Status: Chronic Qualifiers: Hyperlipidemia type: unspecified Qualified Code(s): E78.5 - Hyperlipidemia , unspecified (10) Hypertension Current Visit: Yes Status: Chronic Qualifiers: Hypertension type: essential hypertension Qualified Code(s): I10 - Essential (primary) hypertension (11) Hypothyroidism Current Visit: Yes Status: Chronic Qualifiers: Hypothyroidism type: unspecified Qualified Code(s): E03.9 - Hypothyroidism , unspecified - Subjective Interval history: Appears much more alert and oriented today; able to tell her name and that she is in the hospital, although confused about her medical condition; continues to report she is sick to her stomach with no vomiting, abdominal pain, fever/chills ; noted to have slightly better appetite; - Constitutional Vitals: Temp Pulse Resp BP Pulse Ox 98.1 F 71 14 145/75 99 07/16/16 08:11 07/16/16 08:11 07/16/16 08:11 07/16/16 08:11 07/16/16 08:11 General appearance: Present: A&O X 2 - Respiratory Respiratory exam: Present: CTAB (coarse breath sounds B/L bases). Absent: accessory muscle use, rales, rhonchi, wheezes - Cardiovascular Cardiovascular exam: Present: RRR, +S1, +S2. Absent: diastolic murmur, gallop, rubs, systolic murmur - GI/Abdominal GI/Abdominal exam: Present: normal bowel sounds, soft, no peritoneal signs. Absent: distended, tenderness - Extremities Exam Extremities exam: Present: full ROM, warm, radial pulses palpable and symetrical. Absent: calf tenderness, cyanotic, pedal edema Internal Medicine: Result - Labs CBC & Chem 7: 07/15/16 04:30 07/16/16 05:08 Labs: BMP 07/15/16 07/15/16 07/16/16 12:20 20:11 05:08 Sodium 129 L 131 L 134 L Potassium 3.2 L Chloride 104 Carbon Dioxide 21 BUN 14 D Creatinine 0.66 Glucose 79 Calcium 8.4 L - VTE Documentation of Mechanical Device: Intermittent pneumatic compression device Consult Discharge Plan - Plan Referrals: Yinka Jama MD [Primary Care Provider] -
[2016-07-16] MEDS: Levofloxacin 500 MG/100 ML 500 MG/100 ML BAG IVPB SCH (10:11)
[2016-07-17 06:21] LABS: BUN/Creatinine Ratio 8 (6-26); Blood Urea Nitrogen 6 mg/dL (7-20); Calcium 8.7 mg/dL (8.6-10.8); Carbon Dioxide 24 mEq/L (19-29); Chloride 105 mEq/L (98-109); Glucose 81 mg/dL (70-99); Osmolality,Calculated 277 (280-300); Potassium 3.7 mEq/L (3.5-4.5); Sodium 135 mEq/L (136-145); eGFR For African Americans > 60 (> 60); eGFR For Non-African Americans > 60 (> 60)
[2016-07-17] MEDS: *HR* Heparin 5,000 UNIT/ML VIAL SQ SCH (06:34)
[2016-07-17] MEDS: Levothyroxine 25 MCG TABLET PO SCH (06:34)
[2016-07-17] MEDS: Levofloxacin 500 MG/100 ML 500 MG/100 ML BAG IVPB SCH (08:01)
[2016-07-17] MEDS: 0.9 % Sodium Chloride 1,000 ML IVC SCH (09:39)
[2016-07-17] MEDS: Ondansetron 4 MG/2 ML VIAL IVP PRN (11:45)
--- NOTE | 2016-07-17 14:59 | Discharge Summary ---
Date of Encounter: 07/17/16 Time of Encounter: 07:45 - Discharge Diagnosis (1) Confusion Priority: Primary Status: Resolved (2) Hyponatremia Priority: Primary Status: Resolved (3) Nausea Priority: Primary Status: Resolved (4) Pneumonia Priority: Primary Status: Ruled-out Qualifiers: Pneumonia type: due to unspecified organism Laterality: unspecified laterality Lung location: unspecified part of lung Qualified Code(s): J18.9 - Pneumonia, unspecified organism (5) Acute renal failure Priority: Primary Status: Resolved Qualifiers: Acute renal failure type: unspecified Qualified Code(s): N17.9 - Acute kidney failure, unspecified (6) UTI (urinary tract infection) Priority: Primary Status: Ruled-out Qualifiers: Urinary tract infection type: site unspecified Hematuria presence: without hematuria Qualified Code(s): N39.0 - Urinary tract infection, site not specified (7) Colon cancer Priority: Secondary Status: Chronic Qualifiers: Colon location: transverse Qualified Code(s): C18.4 - Malignant neoplasm of transverse colon (8) Diabetes Priority: Secondary Status: Chronic Qualifiers: Diabetes mellitus type: type 2 Diabetes mellitus complication status: with unspecified complications Diabetes mellitus terminologist insulin use: without terminologist use Qualified Code(s): E11.8 - Type 2 diabetes mellitus with unspecified complications (9) Hyperlipidemia Priority: Secondary Status: Chronic Qualifiers: Hyperlipidemia type: unspecified Qualified Code(s): E78.5 - Hyperlipidemia , unspecified (10) Hypertension Priority: Secondary Status: Chronic Qualifiers: Hypertension type: essential hypertension Qualified Code(s): I10 - Essential (primary) hypertension (11) Hypothyroidism Priority: Secondary Status: Chronic Qualifiers: Hypothyroidism type: unspecified Qualified Code(s): E03.9 - Hypothyroidism , unspecified - Discharge Medications Home Medications: Levothyroxine [Synthroid] 25 mcg PO DAILY 02/12/15 [History] Losartan [Cozaar] 25 mg PO DAILY 02/14/15 [History] Escitalopram [Lexapro] 10 mg PO DAILY 02/19/15 [History] Furosemide [Lasix] 40 mg PO DAILY 02/25/16 [History] Lactose-Reduced Food [Ensure High Protein] 1 bottle PO TID #90 can 02/27/16 [Rx] Lansoprazole [Prevacid] 30 mg PO DAILY 12/16/16 [History] Primidone [Mysoline] 50 mg PO HS 05/16/16 [History] Ondansetron ODT [Zofran ODT] 4 mg SL Q6HR PRN #12 tab.rapdis 05/18/16 [Rx] Megestrol Acetate [Megace] 10 ml PO BID #400 mls 07/07/16 [Rx] Allergies/Adverse Reactions: Allergies No Known Allergies Allergy (Verified 07/13/16 17:46) Date of admission: 07/13/16 23:31 Primary care physician: Yinka Jama MD Discharging clinician: Lauryn Jones Anticipated date of discharge: 07/17/16 - Patient Status Disposition: Transfer SNF Condition: Fair Functional capacity at discharge: uses cane/walker Overall status at discharge: patient is progressing back to baseline - Discharge Instructions Follow Up With: Tomas Carver MD [Partnered Physician] - 07/24/16 1:30 pm Additional Instructions: F/up with PCP in 2 weeks - Diet and Activity Activity: as per physical therapy Diet: diabetic diet, low fat, low cholesterol, low salt diet Hospital course: Ms. Guerrero is a 85 year old female with the above medical problems who was initially admitted with acute confusion. Patient was noted to have underlying baseline dementia. She was noted to have a hyponatremia and complained of persistent nausea and vomiting. She was also noted to be severely dehydrated at the time of admission. She was started on aggressive IV hydration with gradual improvement in serum sodium back to baseline. Chest x-ray was not clear for pneumonia but patient did have risk of aspiration and she was started on IV antibiotics for possible pneumonia. She was also presumed to have a UTI at the time of admission, however urine culture showed no significant bacterial growth. Physical therapy evaluation was done and recommended placement in extended care facility, to which spouse and patient's niece's were in agreement. Patient is currently medically stable for discharge. - Time Spent with Patient Total time spent providing and/or coordinating discharge services: Greater than 30 minutes (45 min) - Constitutional Vitals: Temp Pulse Resp BP Pulse Ox 99.3 F 85 12 115/66 97 07/17/16 12:58 07/17/16 12:58 07/17/16 12:58 07/17/16 12:58 07/17/16 12:58 General appearance: Present: A&O X 2 - Respiratory Respiratory exam: Present: CTAB. Absent: accessory muscle use, rales, rhonchi, wheezes - Cardiovascular Cardiovascular exam: Present: RRR, +S1, +S2. Absent: diastolic murmur, gallop, rubs, systolic murmur - VTE Documentation of Mechanical Device: Intermittent pneumatic compression device
--- NOTE | 2016-07-17 15:03 | Physician Discharge Referral ---
ExtendedCare Referral Info Transfer To: [facility] Provider in Charge: Lauryn Jones Provider in Charge after Transfer: PCP Institutional Level of Care: Skilled - Diagnosis (1) Confusion Priority: Primary Status: Resolved (2) Hyponatremia Priority: Primary Status: Resolved (3) Nausea Priority: Primary Status: Resolved (4) Pneumonia Priority: Primary Status: Ruled-out (5) Acute renal failure Priority: Primary Status: Resolved (6) UTI (urinary tract infection) Priority: Primary Status: Ruled-out (7) Colon cancer Priority: Secondary Status: Chronic (8) Diabetes Priority: Secondary Status: Chronic (9) Hyperlipidemia Priority: Secondary Status: Chronic (10) Hypertension Priority: Secondary Status: Chronic (11) Hypothyroidism Priority: Secondary Status: Chronic Expected Duration of Placement: 3 weeks Prognosis: Fair Aware of Diagnosis: Family Aware of Prognosis: Family - Transfer Medications Home Medications: Levothyroxine [Synthroid] 25 mcg PO DAILY 02/12/15 [History] Losartan [Cozaar] 25 mg PO DAILY 02/14/15 [History] Escitalopram [Lexapro] 10 mg PO DAILY 02/19/15 [History] Furosemide [Lasix] 40 mg PO DAILY 02/25/16 [History] Lactose-Reduced Food [Ensure High Protein] 1 bottle PO TID #90 can 02/27/16 [Rx] Lansoprazole [Prevacid] 30 mg PO DAILY 05/16/16 [History] Primidone [Mysoline] 50 mg PO HS 05/16/16 [History] Ondansetron ODT [Zofran ODT] 4 mg SL Q6HR PRN #12 tab.rapdis 05/18/16 [Rx] Megestrol Acetate [Megace] 10 ml PO BID #400 mls 07/07/16 [Rx] Allergies/Adverse Reactions: Allergies No Known Allergies Allergy (Verified 07/13/16 17:46) - Respiratory Orders Smoking Cessation: Smoking cessation has been advised. For more information, call the [employer] Tobacco Quit Line at [phone]. - Ancillary Orders May use pressure relief devices daily prn - Advance Directives Code Status: Full Code - Mobility Orders Ambulate - Rehabiliation Orders Rehab Potential: Fair Rehab Orders: ROM Exercises, Evaluation for Physical Therapy, Evaluation for Occupational Therapy - Diet Orders No Added Salt (ALETHA), No Concentrated Sweets (diabetic), Cardiac CERTIFICATION: I certify that the transfer of the above named patient to an Extended Care Facility is necessary for the continuing treatment of the diagnosis listed. The above information is true and accurate reflection of patient's current condition. Confidential - Redisclosure prohibited without a patient's written consent.
[2016-07-17 15:09] VITALS: BP 117/68
== END 2016-07-17 16:45 | DRG 682 ==
LOC: EMEROO 17:34 → 3ANU 17:34 → SUATTDRO 23:31
PROVIDERS: ADMIT Internal Medicine; ATTEND Internal Medicine